=== PATIENT | female | born 2005 | race Caucasian/White ===

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

== ENCOUNTER 2025-01-30 18:28 | Inpatient (IN) | payer BC, SELFPAY ==
--- NOTE | ~2025-01-30 | CT_ITS ---
CLINICAL HISTORY: RLQ pain CT abdomen and pelvis with contrast Comparison: US - US ABDOMEN LIMITED - 01/30/25 20:[address]/MA/SR - CT ABDOMEN PELVIS WITH IV CONTRAST - 12/23/23 10:00 EDT Findings: No consolidation or effusion. Focal fat infiltration in segment 4B of the liver. Liver is otherwise within limits. Gallbladder, spleen, pancreas, and adrenal glands are within normal limits. No hydronephrosis. Symmetric contrast enhancement of the kidneys. No bowel obstruction, pneumoperitoneum, or pneumatosis. Mildly dilated appendix with wall thickening and surrounding fat stranding. No perforation or abscess. Pelvic organs are within normal limits. Trace free fluid in the pelvis. No acute fracture. IMPRESSION: Acute appendicitis. No perforation or abscess. This document has been electronically signed by: Tracy Lang MD on 01/31/2025 00:40:43
--- NOTE | ~2025-01-30 | US_ITS ---
CLINICAL HISTORY: RUQ tenderness --- Additional Notes or Special Instructions: GB and CBD US abdomen limited Comparison: CT/PA/SR - CT ABDOMEN PELVIS WITH IV CONTRAST - 12/23/23 10:00 EDT Findings: The visualized liver is normal in echotexture. There is no intrahepatic bile duct dilatation. The common duct is 3 mm in diameter. The gallbladder is normal. There is no sonographic Loaiza sign. The main portal vein is antegrade. No ascites. IMPRESSION: Normal gallbladder. This document has been electronically signed by: Tracy Lang MD on 01/30/2025 20:48:18
[2025-01-30 18:41] VITALS: BP 158/105; PULSE 86; RESP 20; TEMP 37; O2SAT 100; BMI 30.1
[2025-01-30 19:14] LABS: MANUAL DIFF FLAG NO
[2025-01-30 19:21] LABS: Appearance Urine Cloudy; Glucose Urine UA Negative (Negative); Hematocrit 41.0 % (37.0-47.0); Hemoglobin 13.2 g/dl (12.0-16.0); Imm Gran Abs Auto 0.06 X10*3/uL (0.00-0.03); Imm Gran Pct Auto 0.3 % (0.0-0.4); Lymphocytes Absolute Auto 1.5 X10*3/uL (1.2-4.9); Mean Corpuscular HGB Conc 32.2 g/dl (31.0-35.0); Mean Corpuscular Hemoglobin 26.7 pg (27.0-33.0); Mean Corpuscular Volume 82.8 fL (80.0-98.0); NRBC Abs Auto 0.000 X10*3/uL (0.0-0.012); NRBC Pct Auto 0.0 /100WBC (0.0-0.2); PH 6.5 (5.0-9.0); Platelet Count 317 X10*3/uL (160-400); Red Blood Count 4.95 X10*6/uL (4.20-5.50); Specific Gravity - Urine >= 1.030 (1.005-1.025); UMIC TRIGGER UACC YES; White Blood Count 20.7 X10*3/uL (4.8-10.8)
[2025-01-30 19:26] LABS: UACC Culture Trigger YES
[2025-01-30 19:39] LABS: Alanine Aminotransferase 21 U/L (0-31); Albumin Level 5.2 g/dL (3.5-5.0); Alkaline Phosphatase 73 U/L (39-117); Anion Gap 15 (12-20); Aspartate Amino Transferase 23 U/L (5-31); Blood Urea Nitrogen 11 mg/dL (9-16); Calcium 9.5 mg/dL (8.4-10.2); Carbon Dioxide 23 mmol/L (22-29); Chloride 107 mmol/L (96-108); Creatinine Clr Calc Pharmacy 146.1; Estimated Glomerular Filt Rate > 60; Lipase 10 U/L (8-78); Potassium 3.4 mmol/L (3.3-5.1); Sodium 142 mmol/L (135-145); Total Protein 8.1 g/dL (6.5-8.0)
[2025-01-30 21:43] VITALS: BP 124/63; PULSE 68; RESP 14; TEMP 36.6; O2SAT 100
--- NOTE | 2025-01-30 23:29 | PC.NURSE ---
iv line initiated for ct imaging. RN obtained medications and consulted with MD regarding the need for blood cultures as we were giving the pt IVP Ceftriaxone. MD to enter new order for blood cultures to be obtained pt awake and alert, skin warm and dry and she is without dsitress noted. She asked whether or not she could call back to obtain the results of her CT scan as she states her stomach is starting to feel better since laying in the bed and she now rates her pain 3/10. MD to bedside for primary introducations and assessment. callbell in reach
[2025-01-30] MEDS: iohexoL 350 MG/ML 100 ML INFUS..BTL IV (23:42)
[2025-01-31] VITALS (10 sets, daily range): BP systolic 94–117; BP diastolic 50–63; PULSE 55–97; RESP 14–19; TEMP 36.4–36.7; O2SAT 97–100; BMI 30.2
--- NOTE | 2025-01-31 00:58 | ED_ITS ---
HPI - Abdominal Pain General Chief Complaint: Abdominal Pain Stated Complaint: severe abd pain Time Seen by Provider: 01/30/25 22:08 Source: patient Mode of arrival: ambulatory Limitations: no limitations History of Present Illness ED Provider: Dr. Melisa Jiménez HPI narrative: 19-year-old female with no significant past medical history presenting with periumbilical and lower abdominal discomfort ongoing for the last 4 hours prior to arrival. Describes poor appetite, several episodes of nausea and vomiting. No reported diarrhea. States that she is vomiting bile at this point. Describes pain as a cramping sensation that she initially thought was menstrual cramps because she just finished her cycle about 2 days ago. States when the pain became more severe and unrelenting, she decided to come to the hospital for evaluation. No reported fever. Denies known sick contacts or questionable food intake. Had been feeling well prior to this. Related Data Previous Rx's ?Medication ?Instructions ?Recorded cephalexin 500 mg tablet 500 mg PO Q6H 7 days #28 tab s 12/23/23 ketorolac 10 mg tablet 10 mg PO TID PRN pain 5 days #15 12/23/23 tabs ibuprofen 800 mg tablet 800 mg PO Q8H PRN pain #30 t abs 12/30/23 Allergies Allergy/AdvReac Type Severity Reaction Status Date / Time Penicillins AdvReac Nausea Verified 01/30/25 18:42 Review of Systems Review of Systems As per HPI, full review of systems performed and negative but for the above mentioned pertinent positives and negatives. [facility] Social History Social History Alcohol intake: current Alcohol intake frequency: a few times a month Substance Use Type: Marijuana Advance Directives: No Advance Directives Information Provided: No Physical Exam ED Exam Exam: GENERAL: Ill-Appearing, appears uncomfortable. SKIN: Normal skin color for ethnicity, warm, dry, no rashes noted. HEENT: Normocephalic, atraumatic, no stridor, dry mucous membranes, dentition intact, EOMI, PERRLA. NECK: Soft, supple, full ROM, midline structures nontender, no step-offs, no deformities, no lymphadenopathy. CHEST: Heart regular rhythm, no murmurs, symmetric chest rise and fall. PULMONARY: Clear to auscultation bilaterally, diminished at the bases, no labored breathing, no wheezes/rhales/rhonchi. ABDOMINAL: Soft, diffusely tender to palpation with voluntary guarding, nondistended, quiet bowel sounds in all quadrants. : Deferred. MUSCULOSKELETAL: Normal tone, full range of motion, no deformities, no peripheral edema. NEURO: Alert and oriented x3, CN II through XII intact, equal strength and sensation bilateral upper and lower extremities, no focal neurologic deficits. PSYCHIATRIC: Flat affect, fluid speech, good eye contact and appropriate demeanor. Vital Signs: Vital Signs - 24 hr 01/30/25 18:41 01/30/25 21:43 Temperature 98.6 F 98 F Pulse Rate 86 68 Respiratory Rate 20 14 Blood Pressure 158/105 H 124/63 Pulse Oximetry 100 100 Oxygen Delivery Method Room Air Room Air BMI result Body Mass Index 30.1 Medical Decision Making Medical Decision Making [facility] Narrative: This patient presents today with a chief complaint of abdominal pain. Differential diagnosis for this patient is broad. It includes appendicitis, cholecystitis, bowel obstruction, peptic ulcer disease, pyelonephritis, vascular pathology, among many others. A broad-based workup based on history and physical examination was obtained. Patient's white count noted to be significantly elevated with some white blood cells in the urine. Question for potential pyelonephritis versus kidney stone versus appendicitis. We will add on a CT of the abdomen and pelvis as her right upper quadrant ultrasound was negative for cholecystitis. Patient has evidence of acute appendicitis on CT. Her pain is persistent despite Toradol. We will medicate with morphine. Case discussed with general surgeon on-call, Dr. Castillo, who will take patient to the ER and admit for further care and evaluation. Differential Diagnosis Differential Diagnoses: The differential diagnosis associated with the presentation includes (As above) Admission/Observation Consideration of admission/observation: Escalation of care including admission/observation considered Consult Healthcare Provider Management of the patient was discussed with: Corporation Officer (General surgeon) Lab Data [facility] Lab Attestation statement: I reviewed the patient's lab results. 01/30/25 19:08 01/30/25 19:08 Labs: Lab Results 01/30/25 01/30/25 01/31/25 Range/Units 19:08 22:47 00:00 WBC 20.7 H (4.8-10.8) X10*3/uL RBC 4.95 (4.20-5.50) X10*6/uL Hgb 13.2 (12.0-16.0) g/dl Hct 41.0 (37.0-47.0) % MCV 82.8 (80.0-98.0) fL MCH 26.7 L (27.0-33.0) pg MCHC 32.2 (31.0-35.0) g/dl RDW 14.4 (11.0-16.0) % Plt Count 317 (160-400) X10*3/uL MPV 12.4 H (9.4-12.3) fL Immature Gran % (Auto) 0.3 (0.0-0.4) % Neut % (Auto) 84.9 H (45-73) % Lymph % (Auto) 7.4 L (20-40) % [place] % (Auto) 7.1 (2-11) % Eos % (Auto) 0.0 (0-4) % Baso % (Auto) 0.3 (0-2) % Lymph # (Auto) 1.5 (1.2-4.9) X10*3/uL [place] # (Auto) 1.5 H (0.1-1.2) X10*3/uL Eos # (Auto) 0.0 (0.0-0.4) X10*3/uL Baso # (Auto) 0.1 (0.0-0.2) X10*3/uL Abs Immat Gran (auto) 0.06 H (0.00-0.03) X10*3/uL Absolute Neuts (auto) 17.6 H (2.0-8.3) x10*3/uL Absolute Nucleated RBC 0.000 (0.0-0.012) X10*3/uL Nucleated RBC % (auto) 0.0 (0.0-0.2) /100WBC Sodium 142 (135-145) mmol/L Potassium 3.4 (3.3-5.1) mmol/L Chloride 107 (96-108) mmol/L Carbon Dioxide 23 (22-29) mmol/L Anion Gap 15 (12-20) BUN 11 (9-16) mg/dL Creatinine 0.72 (0.5-1.4) mg/dL Estim Creat Clear Calc 146.1 Estimated GFR > 60 Random Glucose 95 (60-115) mg/dL Lactic Acid 0.9 (0.5-2.0) mmol/L Calcium 9.5 (8.4-10.2) mg/dL Total Bilirubin 0.6 (0.0-1.0) mg/dL AST 23 (5-31) U/L ALT 21 (0-31) U/L Alkaline Phosphatase 73 (39-117) U/L Total Protein 8.1 H (6.5-8.0) g/dL Albumin 5.2 H (3.5-5.0) g/dL Lipase 10 (8-78) U/L Beta HCG, Quant < 2 mIU/mL Urine Color Yellow Urine Appearance Cloudy Urine pH 6.5 (5.0-9.0) Ur Specific [place] >= 1.030 H (1.005-1.025) Urine Protein 30 (1+) H (Neg-Trace) mg/dL Urine Glucose (UA) Negative (Negative) mg/dL Urine Ketones 40 (Negative) mg/dL Urine Blood Negative (Negative) Urine Nitrite Negative (Negative) Ur Leukocyte Esterase Moderate (2+) H (Negative) Urine RBC 0-2 (0-2) /HPF Urine WBC >50 H (0-5) /HPF Ur Squamous Epith Cells 3-5 (0-2) /HPF Urine Bacteria 2+ (None Seen) Hyaline Casts 3-5 (0-2) /LPF Monoscreen Negative (Negative) Radiology Impression Discussion of test interpretation with radiology: I have reviewed the radiologist's reading. External Record Review External record reviewed: Inpatient record Medications Administered Discontinued Medications Generic Name Dose Route Start Last Admin Trade Name Freq PRN Reason Stop Dose Admin Ceftriaxone Sodium 1 gm 01/30/25 22:11 01/31/25 00:57 Ceftriaxone Sodium 1 Gm Vial IVPUSH 01/30/25 22:12 1 gm ONCE ONE Administration Sodium Chloride 1,000 mls @ 999 mls/hr 01/30/25 22:15 01/30/25 23:54 Ns IV 01/30/25 23:15 999 mls/hr .Q1H1M CYN Administration Iohexol 100 ml 01/30/25 23:42 01/30/25 23:42 Iohexol 350 Mg/Ml 100 Ml Infus..Btl IV 01/30/25 23:43 85 ml ONCE ONE Administration Ketorolac Tromethamine 15 mg 01/30/25 22:11 01/30/25 23:55 Ketorolac Tromethamine 15 Mg/Ml Vial IVPUSH 01/30/25 22:12 15 mg ONCE ONE Administration Ondansetron HCl 4 mg 01/30/25 22:11 01/30/25 23:55 Ondansetron Hcl 4 Mg/2 Ml Vial IVPUSH 01/30/25 22:12 4 mg ONCE ONE Administration Discharge Plan Discharge Clinical Impression: Abdominal pain, acute, bilateral lower quadrant, Nausea and vomiting, Leukocytosis Acute appendicitis Qualifiers: Acute appendicitis type: with localized peritonitis Appendicitis gangrene presence: without gangrene Appendicitis perforation presence: without perforation Appendicitis abscess presence: without abscess Qualified Code(s): K 35.30 - Acute appendicitis with localized peritonitis, without perforation or gangrene Patient Disposition: Admitted As Inpatient Print Language: Latvian
[2025-01-31] MEDS: metroNIDAZOLE/NS 500 MG/100 ML PIGGYBACK 100 MG IV ×3 (01:21→16:43)
[2025-01-31] MEDS: Dextrose 5 % and Lactated Ring 1,000 ML 125 ML IVCONT (03:16)
--- NOTE | 2025-01-31 08:38 | P.HPGS_ITS ---
History of Present Illness History of Present Illness Date of Service: 01/31/25 Chief complaint: Acute Appendicitis Narrative: Cherelle Nichole is a 19 year old female previously healthy presenting with complaints of lower abdominal pain which began in a periumbilical region and then radiated to the right lower quadrant. Pain was associated with several episodes of nausea and vomiting with the anorexia. She denies a previous history of similar symptoms. She denies any previous abdominal surgeries. She presented to the emergency department and was noted to be tender in the right lower quadrant over McBurney's point. Laboratories revealed an elevated WBC of 20.7. A CT abdomen and pelvis revealed a distended appendix with fat stranding suggestive of acute appendicitis. She is admitted to the surgical service for management of her acute appendicitis. She received antibiotics in the emergency department. Review of Systems Review of Systems: Yes all other systems are reviewed and are negative [facility] Social History Social History Alcohol intake: current Alcohol intake frequency: does not drink Patient Tobacco Use Status: Never used Tobacco Smoked in Last 30 Days: No Use of substances other than those prescribed or required for medical reasons: No Substance Use Type: Marijuana Advance Directives: No Advance Directives Information Provided: No Nutrition Risks: No Nutritional Risk Patient : No Meds Allergies Allergy/AdvReac Type Severity Reaction Status Date / Time Penicillins AdvReac Nausea Verified 01/30/25 18:42 Active Medications: Current Medications Calcium Carbonate (Calcium Carbonate 750 Mg Tab.Chew) 750 mg PO Q4H PRN PRN Reason: Heartburn Ceftriaxone Sodium (Ceftriaxone Sodium 1 Gm Vial) 1 gm IVPUSH Q12H [facility] Hydromorphone HCl (Hydromorphone Hcl 0.5 Mg/0.5 Ml Syringe) 0.5 mg IVPUSH Q3H PRN; Protocol PRN Reason: Pain, Severe (Pain Scale 7-10) Acetaminophen (Ofirmev) 1,000 mg in 100 mls @ 400 mls/hr IV Q6H PRN PRN Reason: Pain, Mild (Pain Scale 1-3) Dextrose/Lactated Ringer's (D5lr) 1,000 mls @ 125 mls/hr IVCONT .Q8H CYN Last Admin: 01/31/25 03:16 Dose: 125 mls/hr Metronidazole (Flagyl) 500 mg in 100 mls @ 100 mls/hr IV Q8H CYN Magnesium Hydroxide (Milk Of Magnesia 30 Ml Oral.Susp) 30 ml PO DAILY PRN PRN Reason: Constipation Melatonin (Melatonin 3 Mg Tablet) 6 mg PO BEDTIME PRN PRN Reason: Insomnia Ondansetron HCl (Ondansetron Hcl 4 Mg/2 Ml Vial) 4 mg IVPUSH QID PRN PRN Reason: Nausea Oxycodone HCl (Oxycodone Hcl Immed Release 5 Mg Tablet) 5 mg PO Q6H PRN PRN Reason: Pain, Moderate(Pain Scale 4-6) Sodium Chloride (0.9 % Sodium Chloride Flush 3 Ml Syringe) 3 ml IVFLUSH QSHIFT [facility] Home Medications ?Medication ?Instructions ?Recorded ?Confirmed ?Last Taken ?Type No Known Home Meds 01/31/25 01/31/25 Un known History Physical Exam Vital Signs: Vital Signs: Last Vital Signs Temp 98.0 F 01/31/25 06:38 Pulse 60 01/31/25 06:38 Resp 14 01/31/25 06:38 BP 94/50 L 01/31/25 06:38 Pulse Ox 99 01/31/25 06:38 O2 Del Method Room Air 01/31/25 06:38 BMI result Body Mass Index 30.1 Const: General: cooperative and no acute distress Nutritional Appearance: well nourished Orientation/consciousness: patient oriented x3 Limitations: no limitations HEENT: Head: Yes normocephalic and Yes atraumatic Ears: hearing grossly normal bilaterally Resp: Effort & Inspection: normal respiratory effort, no audible wheezes, no cough and no respiratory distress Cardio: Jugular venous distension: no JVD GI: Other: Tender in the right lower quadrant over McBurney's point, positive Rovsing sign. No abdominal scars, no rebound, guarding or rigidity. Inspection: Yes normal to inspection Skin: Other: Warm, dry, no rash Neuro: General: patient oriented x3 Extrem: General: Yes no clubbing, cyanosis or edema Results Results Labs: Short CBC 01/30/25 Range/Units 19:08 WBC 20.7 H (4.8-10.8) X10*3/uL Hgb 13.2 (12.0-16.0) g/dl Hct 41.0 (37.0-47.0) % Plt Count 317 (160-400) X10*3/uL BMP 01/30/25 19:08 Sodium 142 Potassium 3.4 Chloride 107 Carbon Dioxide 23 BUN 11 Creatinine 0.72 Calcium 9.5 Liver Function 01/30/25 Range/Units 19:08 Total Bilirubin 0.6 (0.0-1.0) mg/dL AST 23 (5-31) U/L ALT 21 (0-31) U/L Alkaline Phosphatase 73 (39-117) U/L Albumin 5.2 H (3.5-5.0) g/dL Urine 01/30/25 Range/Units 19:08 Urine Color Yellow Urine Appearance Cloudy Urine pH 6.5 (5.0-9.0) Ur Specific [place] >= 1.030 H (1.005-1.025) Urine Protein 30 (1+) H (Neg-Trace) mg/dL Urine Glucose (UA) Negative (Negative) mg/dL Assessment and Plan (1) Acute appendicitis: Qualifiers: Acute appendicitis type: with localized peritonitis Appendicitis abscess presence: without abscess Appendicitis gangrene presence: without gangrene Appendicitis perforation presence: without perforation Qualified Code(s): K35.30 - Acute appendicitis with localized peritonitis, without perforation or gangrene Status: Acute Plan 19-year-old female patient presenting with complaints of right lower quadrant abdominal pain associated with nausea and vomiting found to be tender in the right lower quadrant over McBurney's point with a positive Rovsing sign. Workup revealed an elevated WBC and CT findings suggestive of acute appendicitis. I recommended a laparoscopic or possible open appendectomy and after discussion of the procedure, risks, and alternatives, she consents to the surgery. She has been added onto the operative schedule for today. Quality Stroke Does the patient have a stroke diagnosis?: No VTE Prior VTE?: No VTE Risk Level:: Surgical - low VTE Device Contraindication: N/A - Device Ordered VTE Drug Contraindication: Treatment Not Indicated Procedures Date of Service Date of Service: 01/31/25
[2025-01-31] MEDS: 0.9 % Sodium Chloride Flush 3 ML SYRINGE IVFLUSH ×2 (10:17→16:43)
--- NOTE | 2025-01-31 10:46 | MHC.CM.PN ---
PT LIVES WITH PARENTS IS INDEPEDENT HAS A RIDE HOME DC PLAN HOME N/S
--- NOTE | 2025-01-31 11:12 | PC.NURSE ---
Afshan off unit in OR.
--- NOTE | 2025-01-31 11:33 | P.CONAN_ITS ---
HPI - Anesthesia Eval Consult details Narrative: for lap. appendectomy PMFSH Active Problems Active Problems: All Active Problems Leukocytosis (Acute) Nausea and vomiting (Acute) Abdominal pain, acute, bilateral lower quadrant (Acute) Acute appendicitis (Acute) Epiploic appendagitis (Acute) Past Medical History Patient : No Family History Family history of problems with anesthesia: No Surgical History History of Problems with Anesthesia: No Social History Social History Household Members: Family Housing: Apartment Do you presently have visiting nurse or other home services: No Alcohol intake: current Alcohol intake frequency: does not drink Patient Tobacco Use Status: Never used Tobacco Substance Use Type: Marijuana service: No Meds Allergies Allergy/AdvReac Type Severity Reaction Status Date / Time Penicillins AdvReac Nausea Verified 01/30/25 18:42 Active Medications: Current Medications Calcium Carbonate (Calcium Carbonate 750 Mg Tab.Chew) 750 mg PO Q4H PRN PRN Reason: Heartburn Ceftriaxone Sodium (Ceftriaxone Sodium 1 Gm Vial) 1 gm IVPUSH Q12H CYN Hydromorphone HCl (Hydromorphone Hcl 0.5 Mg/0.5 Ml Syringe) 0.5 mg IVPUSH Q3H PRN; Protocol PRN Reason: Pain, Severe (Pain Scale 7-10) Acetaminophen (Ofirmev) 1,000 mg in 100 mls @ 400 mls/hr IV Q6H PRN PRN Reason: Pain, Mild (Pain Scale 1-3) Dextrose/Lactated Ringer's (D5lr) 1,000 mls @ 125 mls/hr IVCONT .Q8H [facility] Last Infusion: 01/31/25 11:11 Dose: Infused Metronidazole (Flagyl) 500 mg in 100 mls @ 100 mls/hr IV Q8H [facility] Last Infusion: 01/31/25 11:12 Dose: Infused Magnesium Hydroxide (Milk Of Magnesia 30 Ml Oral.Susp) 30 ml PO DAILY PRN PRN Reason: Constipation Melatonin (Melatonin 3 Mg Tablet) 6 mg PO BEDTIME PRN PRN Reason: Insomnia Ondansetron HCl (Ondansetron Hcl 4 Mg/2 Ml Vial) 4 mg IVPUSH QID PRN PRN Reason: Nausea Oxycodone HCl (Oxycodone Hcl Immed Release 5 Mg Tablet) 5 mg PO Q6H PRN PRN Reason: Pain, Moderate(Pain Scale 4-6) Sodium Chloride (0.9 % Sodium Chloride Flush 3 Ml Syringe) 3 ml IVFLUSH QSHIFT [facility] Last Admin: 01/31/25 10:17 Dose: 3 ml Home Medications ?Medication ?Instructions ?Recorded ?Confirmed ?Last Taken ?Type No Known Home Meds 01/31/25 01/31/25 Un known History Exam Height,Weight and Vital Signs: Height 5 ft 8 in Weight 90 kg Last Vital Signs Temp 97.5 F 01/31/25 09:35 Pulse 59 01/31/25 09:35 Resp 14 01/31/25 09:35 BP 113/55 L 01/31/25 09:35 Pulse Ox 97 01/31/25 09:35 O2 Del Method Room Air 01/31/25 09:35 Pertinent Lab Results Pertinent Lab Results: Laboratory Tests 01/30/25 01/30/25 01/31/25 19:08 22:47 00:00 WBC 20.7 H RBC 4.95 Hgb 13.2 Hct 41.0 MCV 82.8 MCH 26.7 L MCHC 32.2 RDW 14.4 Plt Count 317 MPV 12.4 H Immature Gran % (Auto) 0.3 Neut % (Auto) 84.9 H Lymph % (Auto) 7.4 L [place] % (Auto) 7.1 Eos % (Auto) 0.0 Baso % (Auto) 0.3 Lymph # (Auto) 1.5 [place] # (Auto) 1.5 H Eos # (Auto) 0.0 Baso # (Auto) 0.1 Abs Immat Gran (auto) 0.06 H Absolute Neuts (auto) 17.6 H Absolute Nucleated RBC 0.000 Nucleated RBC % (auto) 0.0 Sodium 142 Potassium 3.4 Chloride 107 Carbon Dioxide 23 Anion Gap 15 BUN 11 Creatinine 0.72 Estim Creat Clear Calc 146.1 Estimated GFR > 60 Random Glucose 95 Lactic Acid 0.9 Calcium 9.5 Total Bilirubin 0.6 AST 23 ALT 21 Alkaline Phosphatase 73 Total Protein 8.1 H Albumin 5.2 H Lipase 10 Beta HCG, Quant < 2 Urine Color Yellow Urine Appearance Cloudy Urine pH 6.5 Ur Specific [place] >= 1.030 H Urine Protein 30 (1+) H Urine Glucose (UA) Negative Urine Ketones 40 Urine Blood Negative Urine Nitrite Negative Ur Leukocyte Esterase Moderate (2+) H Urine RBC 0-2 Urine WBC >50 H Ur Squamous Epith Cells 3-5 Urine Bacteria 2+ Hyaline Casts 3-5 Monoscreen Negative Airway Mallampati Class: II TM Dist: <=3cm Neck ROM: Full Loose/Missing/Broken Teeth: No Heart: ok Lungs: ok Assessment and Plan Assessment Anesthesia Assessment: Anesthesia Plan Discussed and Chart Reviewed Final Anesthetic Review Family History of Problems with Anesthesia: No History of Problems with Anesthesia: No NPO: Yes ASA Class: II and Emergency Final Preanesthetic Review: No Changes in Pt Med Stat, Meds/Allgs Chart Reviewed, Consent Obtained/Reviewed and Anes Risks/Benef Reviewed Patient Risk: Low Procedure Risk: Intermediate Anesthetic Plan Anesthetic Plan: GA and Agree w/ Assess. and Plan Disposition: Standard PACU
--- NOTE | 2025-01-31 12:52 | P.OP_ITS ---
Operative Note Operative Note Date of Service: 01/31/25 Narrative: Preoperative diagnosis: Acute appendicitis Postoperative diagnosis: Same Procedure: Laparoscopic appendectomy Surgeon: Orlando Castillo MD [employer] Consultant: None Anesthesia: General endotracheal Indications for procedure: 19-year-old female patient presenting with complaints of periumbilical pain radiating to the right lower quadrant found to have an elevated WBC and CT findings suggestive of acute appendicitis Operative findings: Early appendicitis without perforation or abscess Specimen: Appendix Estimated blood loss: Less than 2 mL Complications: None Procedure details: Patient was brought to the OR and placed in a supine position. After administering general anesthesia the patient's abdomen was prepped with ChloraPrep and draped in a sterile fashion. A surgical time-out was called and consent confirmed. Patient received preoperative antibiotics and Venodyne boots were in place. Local anesthesia consisting of 0.75% Sensorcaine with epinephrine was infiltrated in periumbilical region. A 5 mm incision was made below the umbilicus and carried down through subcutaneous tissue. A Veress needle was then inserted while elevating abdominal cavity with towel clips. After a positive drop test the abdomen was insufflated to a pressure of 15 mm of mercury. The Veress needle was removed and a 5 mm trocar inserted. The camera was then inserted in the abdomen explored. A 2nd 5 mm trocars placed in the lower midline. A 12 mm trocar was then placed in the left lower quadrant. The patient was then placed in a Trendelenburg position and rotated to the left. The appendix was identified in the right lower quadrant and brought up using blunt dissecting clamps. The mesentery of the appendix was then divided using the LigaSure. The appendiceal artery was cauterized and divided using the LigaSure. Dissection was continued down to the base of the cecum. An Endo-ANDREW stapler with a purple reload was then used to divide the appendix at the base with the cecum. The appendix was then placed in Endo-Catch bag and brought out through the left lower quadrant incision. Wounds were checked for hemostasis. CO2 was then evacuated and trocars removed. Skin was closed at all incisions using a subcuticular 4-0 Polysorb suture. Steri-Strips 2 x 2 gauze and Tegaderm were then applied. The patient tolerated the procedure well. Sponge, instrument, needle counts reported as correct. The patient was transferred to PACU in stable condition.
--- NOTE | 2025-01-31 13:33 | PC.NURSE ---
Patient returned to unit from OR. Awake, alert, conversing. Abdomen soft, minimal tenderness, 3 incision sites with gauze and tegaderm, clean and intact, scant bloody drainage on umbilical site. Minimal complaints of pain at this time, discussion and education provided on pain management and splinting when coughing. Patient encouraged to cough and deep breath and incentive spirometer at bedside. Bed alarm on due to fall risk after procedure, pt understands to ring for assistance when she wants to get up. Patient's mother at bedside.
[2025-01-31] MEDS: Milk of Magnesia 30 ML ORAL.SUSP PO (20:30)
[2025-02-01] VITALS: BP 100/54; PULSE 67; RESP 16; TEMP 36.8; O2SAT 98
[2025-02-01] MEDS: metroNIDAZOLE/NS 500 MG/100 ML PIGGYBACK 100 MG IV (00:44)
[2025-02-01] MEDS: 0.9 % Sodium Chloride Flush 3 ML SYRINGE IVFLUSH (01:56)
[2025-02-01 04:00] VITALS: BP 104/51; PULSE 60; RESP 16; TEMP 36.9; O2SAT 98
[2025-02-01 05:50] LABS: MANUAL DIFF FLAG NO
[2025-02-01 05:55] LABS: Hematocrit 34.3 % (37.0-47.0); Hemoglobin 10.7 g/dl (12.0-16.0); Imm Gran Abs Auto 0.04 X10*3/uL (0.00-0.03); Imm Gran Pct Auto 0.4 % (0.0-0.4); Lymphocytes Absolute Auto 2.1 X10*3/uL (1.2-4.9); Mean Corpuscular HGB Conc 31.2 g/dl (31.0-35.0); Mean Corpuscular Hemoglobin 26.4 pg (27.0-33.0); Mean Corpuscular Volume 84.7 fL (80.0-98.0); NRBC Abs Auto 0.000 X10*3/uL (0.0-0.012); NRBC Pct Auto 0.0 /100WBC (0.0-0.2); Platelet Count 208 X10*3/uL (160-400); Red Blood Count 4.05 X10*6/uL (4.20-5.50); White Blood Count 10.8 X10*3/uL (4.8-10.8)
[2025-02-01 07:05] VITALS: BP 107/54; PULSE 56; RESP 16; TEMP 36; O2SAT 99
--- NOTE | 2025-02-01 07:47 | PM.PNGS ---
Subjective Subjective Date of Service: 02/01/25 <Lissette Mike PA-C - Last Filed: 02/01/25 07:50> 02/01/25 <Orlando Castillo MD - Last Filed: 02/01/25 08:14> Interval history: Feels well, mild incisional soreness but able to get OOB and ambulate without difficulty. Tolerating solid diet, some nausea last night but resolved. Wants to go home. <Lissette Mike PA-C - Last Filed: 02/01/25 07:50> Physical Exam Vital Signs: Vital Signs: Last Vital Signs Temp 96.8 F 02/01/25 07:05 Pulse 56 02/01/25 07:05 Resp 16 02/01/25 07:05 BP 107/54 L 02/01/25 07:05 Pulse Ox 99 02/01/25 07:05 O2 Del Method Room Air 02/01/25 07:05 BMI result Body Mass Index 30.2 <Lissette Mike PA-C - Last Filed: 02/01/25 07:50> Const: General: comfortable, no acute distress and alert <Lissette Mike PA-C - Last Filed: 02/01/25 07:50> Orientation/consciousness: patient oriented x3 <STANISLAW Baptiset Last Filed: 02/01/25 07:50> Resp: Effort & Inspection: normal respiratory effort <Lissette Mike PA-C - Last Filed: 02/01/25 07:50> GI: Other: dressings intact, umbilical blood stained but dry mild incisional tenderness abd soft nondistended <Lissette Mike PA-C - Last Filed: 02/01/25 07:50> Skin: General skin exam: no rashes or lesions noted <STANISLAW Baptiste Last Filed: 02/01/25 07:50> Neuro: General: patient oriented x3 and moves all extremities <STANISLAW Baptiste Last Filed: 02/01/25 07:50> Objective Data Active Medications Calcium Carbonate (Calcium Carbonate 750 Mg Tab.Chew) 750 mg PO Q4H PRN PRN Reason: Heartburn Ceftriaxone Sodium (Ceftriaxone Sodium 1 Gm Vial) 1 gm IVPUSH Q12H [facility] [place] Last Admin: 02/01/25 00:42 Dose: 1 gm Documented By: SURESH Hydromorphone HCl (Hydromorphone Hcl 0.5 Mg/0.5 Ml Syringe) 0.5 mg IVPUSH Q3H PRN; Protocol PRN Reason: Pain, Severe (Pain Scale 7-10) Acetaminophen (Ofirmev) 1,000 mg in 100 mls @ 400 mls/hr IV Q6H PRN PRN Reason: Pain, Mild (Pain Scale 1-3) Metronidazole (Flagyl) 500 mg in 100 mls @ 100 mls/hr IV Q8H [facility] [place] Last Infusion: 02/01/25 01:44 Dose: Infused Documented By: SURESH Magnesium Hydroxide (Milk Of Magnesia 30 Ml Oral.Susp) 30 ml PO DAILY PRN PRN Reason: Constipation Last Admin: 01/31/25 20:30 Dose: 30 ml Documented By: SURESH Melatonin (Melatonin 3 Mg Tablet) 6 mg PO BEDTIME PRN PRN Reason: Insomnia Last Admin: 02/01/25 01:55 Dose: 6 mg Documented By: SURESH Ondansetron HCl (Ondansetron Hcl 4 Mg/2 Ml Vial) 4 mg IVPUSH QID PRN PRN Reason: Nausea Oxycodone HCl (Oxycodone Hcl Immed Release 5 Mg Tablet) 5 mg PO Q6H PRN PRN Reason: Pain, Moderate(Pain Scale 4-6) Sodium Chloride (0.9 % Sodium Chloride Flush 3 Ml Syringe) 3 ml IVFLUSH QSHIFT [facility] [place] Last Admin: 02/01/25 01:56 Dose: 3 ml Documented By: SURESH <Lissette Mike PA-C - Last Filed: 02/01/25 07:50> Labs CBC & Chem 7: 02/01/25 05:28 01/30/25 19:08 <Lissette Mike PA-C - Last Filed: 02/01/25 07:50> Labs: Laboratory Results - last 24 hr 02/01/25 05:28 MCV 84.7 MCH 26.4 L MCHC 31.2 RDW 14.3 Plt Count 208 D MPV 12.6 H Immature Gran % (Auto) 0.4 Neut % (Auto) 68.6 Lymph % (Auto) 19.5 L [place] % (Auto) 10.3 Eos % (Auto) 0.7 Baso % (Auto) 0.5 Lymph # (Auto) 2.1 [place] # (Auto) 1.1 Eos # (Auto) 0.1 Baso # (Auto) 0.1 Abs Immat Gran (auto) 0.04 H Absolute Neuts (auto) 7.4 Absolute Nucleated RBC 0.000 Nucleated RBC % (auto) 0.0 <Lissette Mike PA-C - Last Filed: 02/01/25 07:50> Microbiology Microbiology Results: Microbiology 01/31/25 00:00 Blood Culture - Preliminary Blood - Venous No growth after 24 hours. 01/31/25 00:00 Blood Culture - Preliminary Blood - Venous No growth after 24 hours. 01/30/25 19:00 Urine Culture - Preliminary Urine clean catch - Clean Catch Midstream Culture too young to evaluate. <Lissette Mike PA-C - Last Filed: 02/01/25 07:50> Procedures Date of Service Date of Service: 02/01/25 <Lissette Mike PA-C - Last Filed: 02/01/25 07:50> 02/01/25 <Orlando Castillo MD - Last Filed: 02/01/25 08:14> Progress Note: A&P Assessment and plan (1) Acute appendicitis: Status: Acute <Lissette Mike PA-C - Last Filed: 02/01/25 07:50> (2) S/P laparoscopic appendectomy: Status: Acute <Lissette Mike PA-C - Last Filed: 02/01/25 07:50> Assessment and Plan: POD #1 s/p lap appy. Doing well post op, tolerating solid diet, has good pain control. VSS. Abd exam benign with appropriate post op tenderness. Stable for dc to home today with f/u in office in 1 week. Patient comfortable with plan. <Lissette Mike PA-C - Last Filed: 02/01/25 07:50> POD #1 s/p lap appy. Doing well post op, tolerating solid diet, has good pain control. VSS. Abd exam benign with appropriate post op tenderness. Stable for dc to home today with f/u in office in 1 week. Patient comfortable with plan. Patient seen and examined, feels much improved this morning. Wounds are clean and intact. Agree with discharge to home. Follow up in office in approximately 1 week. <Orlando Castillo MD - Last Filed: 02/01/25 08:14> Time Spent With Patient Time: Total time managing care of this patient today ____ minutes. <Lissette Mike PA-C - Last Filed: 02/01/25 07:50> Quality Stroke Does the patient have a stroke diagnosis?: No <Lissette Mike PA-C - Last Filed: 02/01/25 07:50> VTE Prior VTE?: No <Lissette Mike PA-C - Last Filed: 02/01/25 07:50> VTE Risk Level:: Surgical - low <Lissette Mike PA-C - Last Filed: 02/01/25 07:50> VTE Device Contraindication: N/A - Device Ordered <Lissette Mike PA-C - Last Filed: 02/01/25 07:50> VTE Drug Contraindication: Treatment Not Indicated <Lissette Mike PA-C - Last Filed: 02/01/25 07:50>
--- NOTE | 2025-02-01 08:38 | HO.POSTANES ---
Post Anesthesia Evaluation Post Anesthesia Evaluation Date of Service: 02/01/25 Vital Signs: Vital Signs Temp Pulse Resp BP Pulse Ox O2 Del Method 02/01/25 07:05 96.8 F 56 16 107/54 L 99 Room Air 02/01/25 04:00 98.4 F 60 16 104/51 L 98 Room Air 02/01/25 00:00 98.3 F 67 16 100/54 L 98 Room Air Anesthesia: General Mental Status: Awake Pain Control: Satisfactory Nausea/Vomiting: None Hydration: Adequate Anesthesia-Related Issues: No Anes. Related Issues
--- NOTE | 2025-02-01 08:51 | MHC.CM.PN ---
PT CLEARED TO DC HOME TODAY WITH NO SERVICES FAMILY TO TRANSPORT
--- NOTE | 2025-02-01 15:09 | PM.DS ---
DS: Providers Provider Date of Service: 02/01/25 Date of admission: 01/31/25 00:57 Date of discharge: 02/01/25 Primary care physician: Ifeanyi Physician Attending physician on admission: Orlando Castillo Attending physician on discharge: Orlando Castillo DS: Diagnosis Discharge Diagnosis (1) Acute appendicitis: Status: Acute (2) S/P laparoscopic appendectomy: Status: Acute DS: Summary Hospital Course Hospital Course: HPI AT ADMISSION: Cherelle Nichole is a 19 year old female previously healthy presenting with complaints of lower abdominal pain which began in a periumbilical region and then radiated to the right lower quadrant. Pain was associated with several episodes of nausea and vomiting with the anorexia. She denies a previous history of similar symptoms. She denies any previous abdominal surgeries. She presented to the emergency department and was noted to be tender in the right lower quadrant over McBurney's point. Laboratories revealed an elevated WBC of 20.7. A CT abdomen and pelvis revealed a distended appendix with fat stranding suggestive of acute appendicitis. She received antibiotics in the emergency department. HOSPITAL COURSE: The patient was admitted to the surgical service for further treatment of the acute appendicitis. She elected to proceed with laparoscopic appendectomy. She was added onto the OR schedule for that day. On 01/31/25, a laparoscopic appendectomy was performed by Dr. Castillo without complication. The patient tolerated the procedure well. She had an uncomplicated recovery course. On POD #1, she felt well and was tolerating a solid diet without nausea or vomiting, had good pain control and was ambulating without difficulty. She was hemodynamically stable. Her abdomen was benign with appropriate post op tenderness and clean and intact dressings. She felt ready for discharge. She was discharged to home on 02/01/25 in stable condition. She is to follow up in the office in 1 week. Status at Discharge Functional status at discharge: independent ambulation Overall status at discharge: patient is progressing back to baseline Time Attestation Discharge Coordination Time (in mins): 25 Quality: Safe Use of Opioids Does Pt have an Active Cancer Diagnosis on the Problem List?: No Quality: Stroke Does the patient have a stroke diagnosis?: No Physical Exam Vital Signs: Vital Signs: Last Vital Signs Temp 96.8 F 02/01/25 07:05 Pulse 56 02/01/25 07:05 Resp 16 02/01/25 07:05 BP 107/54 L 02/01/25 07:05 Pulse Ox 99 02/01/25 07:05 O2 Del Method Room Air 02/01/25 07:05 BMI result Body Mass Index 30.2 Const: General: comfortable, no acute distress and alert Orientation/consciousness: patient oriented x3 Resp: Effort & Inspection: normal respiratory effort GI: Inspection: No distended and Yes incision (dressings intact) Palpation (GI): Soft to palpation, Tenderness to palpation present (GI) (mild incisional) and no guarding Skin: General skin exam: no rashes or lesions noted Neuro: General: patient oriented x3 and moves all extremities DS: Data Data Completed and Pending Completed studies during hospitalization [Text1]: 01/31/25 12:40 Surgical [PTH] Routine Vermiform appendix, appendectomy: Acute appendicitis and periappendicitis. Labs on day of discharge: Preliminary micro results at discharge 01/31/25 00:00 Blood Culture - Preliminary Blood - Venous No growth after 48 hours. 01/31/25 00:00 Blood Culture - Preliminary Blood - Venous No growth after 48 hours. Discharge Plan Discharge Anticipated Discharge Date/Time: 02/01/25 07:47 Patient Disposition: Home, Self-Care Discharge Diagnosis: acute appendicitis s/p laparoscopic appendectomy Referrals: Orlando Castillo MD [Physician, General Surgery] - 1 Week Physician,Ifeanyi [Primary Care Provider, Medical] - 1 Week Discharge Medications: New docusate sodium [Colace] 100 mg capsule 100 mg PO BID PRN (Reason: constipation) Qty: 30 0RF oxycodone 5 mg tablet 5 mg PO Q4H PRN (Reason: pain (scale score 7-10)) Qty: 24 0RF Rx Instructions: Partial Fill upon patient request. Discharge Orders: Discharge Order (Routine); Ordered 02/01/25 Ordered By: Lissette Mike Diet: Advance to usual diet Activity on Discharge: No heavy lifting Stand Alone Forms: Patient Portal Discharge page Print Language: Mongolian Activity Restrictions/Additional Instructions: If the incision area is tender, you may apply an ice pack for short intervals (No more than 20 minutes on, followed by at least 20 minutes off). Do not apply heat. Do not use creams, lotions, or topical antibiotics. Ok to shower. Remove clear dressings 3 days following your procedure. You have steri strips (small white strips) covering your incision- these will fall off ~1 week. No heavy lifting (>10lbs) or strenuous activity! Take Tylenol Extra-strength 1-2 tabs every 6 hours for the first day, then as needed. Oxycodone every 6-8 hours as needed for pain. Colace 100 mg every day as needed for constipation. Follow up in office with Dr. Castillo in 1 week. ([phone]) Call Your Doctor If: -Your temperature exceeds 101.5? F -You experience excessive pain or swelling -You have an unexpected reaction to medication -You have excessive bleeding -You experience continued vomiting/nausea -Your incision begins to separate -Your incision shows signs of infection such as increased redness, swelling, excessive pain, drainage (light blood or clear fluid is normal) or heat Care Plan Goals: Return to baseline health and resume normal activities following recovery period. Health Concerns: acute appendicitis Plan of Treatment: s/p laparoscopic appendectomy pain control follow up in the office in 1 week Assessment: Doing well post op. Discharge Date/Time: 02/01/25 09:16
== END 2025-02-01 09:16 | disposition home or self-care (01) | DRG 234 ==
LOC: HO.ED 01-31 00:59 → HO.EDOVER 01-31 01:07 → HO.S3 01-31 07:01
PROVIDERS: Admitting Provider Surgery; Emergency Provider Emergency Medicine; Visit Provider Surgery
PROC: 0DTJ4ZZ Resection of Appendix, Percutaneous Endoscopic Approach (ICD-10-PCS; CPT 44970; principal; 2025-01-31 13:00)
DX: K35.80 Unspecified acute appendicitis (principal)
CPT/HCPCS: 36415; 74177; 76705; 80053; 81001; 83605; 83690; 84702; 85025; 86308; 87040; 87086; 87147; 88304; 99285; J0131; J0696; J1596; J1836; J1885; J2003; J2270; J2405; J2704; J3010; Q9967

== ENCOUNTER → 2025-01-30 19:27 | Outpatient (BNV) | payer BC, SELFPAY | PROVIDERS: Visit Provider Radiology Diagnostic Radiology | DX: K35.80 Unspecified acute appendicitis (principal) | CPT/HCPCS: 74177; 76705 ==

== ENCOUNTER → 2025-01-31 00:57 | Outpatient (BNV) | payer BC, SELFPAY | PROVIDERS: Admitting Provider Surgery; Emergency Provider Emergency Medicine; Visit Provider Surgery | DX: K35.30 Acute appendicitis with localized peritonitis, without perforation or gangrene (principal) | CPT/HCPCS: 44970; 99222 ==

== ENCOUNTER 2025-02-08 10:09 | Outpatient (AMB) | payer BC, SELFPAY ==
[2025-02-08 10:16] VITALS: BP 117/70; PULSE 80
--- NOTE | 2025-02-08 10:16 | A.OFFVIS_ITS ---
Vital Signs 02/08/25 10:16 Weight 201 lb BP 117/70 Blood Pressure Location Rt brachial Position Sitting Pulse 80 Intake Visit Reasons: s/p lap appy (01/31/2025) Intake Note: Patient here s/p Laparoscopic appendectomy. Patient c/o: steri strips along umbilicus tender to touch. Reports incisions healing well. No longer taking rx pain meds. Surgery (): 01-31-2025 Rides Attendant Required: No Accompanied by: Self / Same As Patient Allergies Penicillins Adverse Reaction (Verified 02/08/25 10:18) Nausea HPI HPI s/p lap appy (01/31/2025): Details: Doing well, denies abdominal pain. Reports her appetite and bowel function are normal. She states she has left the dressing on the suprapubic incision site because her waistband presses on it and thought that it would give extra protection. She denies any bleeding from incision sites, denies drainage. Overall feels well [facility] Surgical History (Updated 02/08/25 @ 08:37 by MANI Lepe) S/P laparoscopic appendectomy (01/31/25) Social History Household Members: Family Housing: Apartment Do you presently have visiting nurse or other home services: No Alcohol intake: current Alcohol intake frequency: does not drink Patient Tobacco Use Status: Never used Tobacco Substance Use Type: Marijuana service: No Physical Exam Vital Signs: Last Vital Signs Pulse 80 02/08/25 10:16 BP 117/70 02/08/25 10:16 Const General: comfortable and no acute distress Orientation/consciousness: patient oriented x3 GI Other: Incision sites clean dry intact, nontender, no fluctuance or discharge, no erythema Palpation (GI): Soft to palpation and nontender Neuro General: patient oriented x3 Assessment & Plan Assessment & Plan (1) S/P laparoscopic appendectomy: Onset Date: 01/31/25 Comment: Laparoscopic appendectomy Orlando Mcitnosh Code(s): Z90.49 - Acquired absence of other specified parts of digestive tract Category: Medical Plan 19-year-old female s/p laparoscopic appendectomy on 01/31/[address] Castillo returning to the office for routine follow up. Overall patient doing very well, denies any pain. Her appetite and bowel function are at baseline, denies nausea or vomiting. Denies fevers or chills. On exam her abdomen is soft and benign, incision sites are clean dry and intact, no concern for infection at this time. Pathology report reviewed, acute appendicitis and periappendicitis. We will continue with activity restrictions for the next 3 weeks. No heavy lifting greater than 15-20 lb. Patient no longer requiring follow up, can return as needed with any questions or concerns in the future. Coding Level of Care Code Global (51187) Diagnoses S/P laparoscopic appendectomy Z90.49
== END 2025-02-08 10:22 | disposition home or self-care (01) ==
LOC: HO.HGS 10:10
DX: Z90.49 Acquired absence of other specified parts of digestive tract (principal)
CPT/HCPCS: 99024